=== PATIENT | female | born 1995 | race Caucasian/White ===

== ENCOUNTER 2017-06-28 11:52 | Emergency (ER) | payer OTHER ==
[2017-06-28 12:01] VITALS: BP 118/74
--- NOTE | 2017-06-30 08:06 | ED ---
David Son Angela, scribed for Jason Marcial MD on 06/28/17 at 1222 . Abdominal Pain/Female - HPI Summary HPI Summary: This pt is a 22 y/o female presenting to [facility] c/o abd pain that began this morning. Pt additionally reports nausea. She states she has an exam today at 13:25 and can't miss it. Pt would like to leave AMA before any lab work or images are done. She notes she has waited for too long to be seen in the ED. - History of Current Complaint Chief Complaint: EDAbdPain Stated Complaint: ABD PAIN Time Seen by Provider: 06/28/17 12:17 Hx Obtained From: Patient, Other: - Triage notes Onset/Duration: Lasting Hours, Still Present Timing: Constant Severity Currently: Moderate Pain Intensity: 5 Pain Scale Used: 0-10 Numeric Location: Diffuse Radiates: No Aggravating Factor(s): Other: - unknown Alleviating Factor(s): Other: - unknown Associated Signs and Symptoms: Positive: Nausea. Negative: Vomiting, Diarrhea Allergies/Adverse Reactions: Allergies Allergy/AdvReac Type Severity Reaction Status Date / Time No Known Allergies Allergy Verified 02/08/15 11:59 PMH/Surg Hx/FS Hx/Imm Hx Endocrine/Hematology History: Denies: Hx Diabetes Cardiovascular History: Denies: Hx Hypertension Infectious Disease History: No Infectious Disease History: Denies: Traveled Outside the [place] in Last 30 Days - Family History Known Family History: Positive: Unknown - pt left AMA - Social History Alcohol Use: Rare Substance Use Type: Reports: None Smoking Status (MU): Never Smoked Tobacco Review of Systems Negative: Fever, Chills Eyes: Negative ENT: Negative Positive: Abdominal Pain, Nausea. Negative: Diarrhea Musculoskeletal: Negative Skin: Negative Neurological: Negative All Other Systems Reviewed And Are Negative: Yes Physical Exam - Summary Physical Exam Summary: Physical exam was not performed because the pt declined and left AMA. Triage Information Reviewed: Yes Vital Signs On Initial Exam: Initial Vitals Temp Pulse Resp BP Pulse Ox 98.9 F 88 18 118/74 98 06/28/17 11:58 06/28/17 11:58 06/28/17 11:58 06/28/17 11:58 06/28/17 11:58 Vital Signs Reviewed: Yes Diagnostics - Vital Signs Vital Signs Temp Pulse Resp BP Pulse Ox 06/28/17 11:58 98.9 F 88 18 118/74 98 - Laboratory Lab Statement: Any lab studies that have been ordered have been reviewed, and results considered in the medical decision making process. Abdominal Pain Fem Course/Dx - Course Course Of Treatment: This pt is a 22 y/o female presenting to [facility] c/o abd pain that began this morning. Pt additionally reports nausea. She states she has an exam today at 13:25 and can't miss it. Pt would like to leave AMA before any lab work or images are done. The pt declined any physical exam or lab work. She was instructed that there is a risk for an unknown dangerous abdominal and pelvic pathology. However, she does not want to stay in the ED for any testing. She states the pain is better and if she continues to have pain she will return to the ED for an evaluation. She reports she has class at 1 :25 PM and cant miss it. Pt understands the risks and benefits of leaving AMA, and she signed the AMA form. Pt was instructed to return to the ED for any worsening or new symptoms. I extensively discussed with the patient the benefits and risk of leaving AMA. I also discussed the alternatives to leaving AMA, however, the patient still insist to leave the hospital AMA.. The primary nurse and the charge nurse also strongly recommended that the patient should not leave AMA. Patient understands the risk of leaving AMA, which includes but is not restricted to . Patient is Alert and oriented times three and patient verbalizes understanding. Patient has full capacity and is cognitively intact. Patient signed the AMA form. Patient was also advised to return to ED if he changes his mind or if the symptoms worsen or other symptoms appear. Patient understands and agrees. - Diagnoses Provider Diagnoses: Abdominal pain Discharge - Discharge Plan Condition: Stable Disposition: AGAINST MEDICAL ADVICE Referrals: [facility] - Piyush OROPEZA [Primary Care Provider] - The documentation as recorded by the David aragon Angela accurately reflects the service I personally performed and the decisions made by me, Jason Marcial MD.
== END 2017-06-28 12:23 | disposition left against medical advice (07) ==
LOC: ED 11:52
DX: R10.9 Unspecified abdominal pain (principal); R11.0 Nausea
CPT/HCPCS: 99282